=== PATIENT | female | born 1930 | race Caucasian/White ===

== ENCOUNTER 2019-12-16 17:33 | Inpatient (IN) | payer MEDICARE ==
[~2019-12-16] VITALS: Ht 163.8 cm; Wt 50.6 kg
[~2019-12-16 17:33] MED LIST: ATEN100T PO; LOSA100T14 PO
--- NOTE | 2019-12-16 17:56 | NUR ---
BIB [facility] FROM HOME FOR EXERTIONAL DYSPNEA X SEVERAL DAYS, NOTED WHILE DOING YARD WORK. SOB RELIEVED WITH REST. SIGNIFICANT HX OF HTN, MITRAL VALVE PROLAPSE, AND BREAST CANCER. DENIES N/V/D/CP/PRODUCTIVE COUGH/FEVER/EDEMA. BP/SPO2/ECG MONITORING IN PLACE. LBBB W FREQUENT PVCs NOTED ON MONITOR. SPO2 >90% ON RA, RR WNL WITH OCCASIONAL GASP. PT SPEAKING IN FULL SENTENCES WO DIFFICULTY. NO ACCESSORY MUSCLE USE NOTED. +MILD JVD, NO PERIPHERAL EDEMA. DENIES TRAVEL OR HORMONE REPLACEMENT THERAPIES. IV ESTABLISHED. LAB IN TO DRAW. NIECE AT BEDSIDE.
[2019-12-16 18:04] LABS: BASOPHILS % (AUTO) 1 % (0-1); EOSINOPHILS % (AUTO) 0 % (1-7); LYMPHOCYTES % (AUTO) 12 % (22-44); MEAN CORPUSCULAR HEMOGLOBIN 30.8 pg (27.0-34.8); MEAN CORPUSCULAR HGB CONC 32.9 g/dL (32.4-35.8); MEAN PLATELET VOLUME 7.8 fL (7.4-10.4); MONOCYTES % (AUTO) 8 % (2-9); NEUTROPHILS % (AUTO) 80 % (42-75); PLATELET COUNT 677 x10^3/uL (130-400); RED BLOOD COUNT 4.79 x10^6/uL (3.82-5.3); RED CELL DISTRIBUTION WIDTH 15.9 % (9.6-15.2)
[2019-12-16 18:12] LABS: ALBUMIN 3.5 g/dL (3.4-5.0); ANION GAP 9 mmol/L (5-15); CALCIUM 9.1 mg/dL (8.5-10.1); CHLORIDE 103 mmol/L (98-107); CREATININE 1.53 mg/dL (0.55-1.02)
[2019-12-16 18:44] LABS: MD SCAN
--- NOTE | 2019-12-16 18:57 | NUR ---
REPORT GIVEN TO TOMAS LAWLER
[2019-12-16] MEDS ORDERED: ASPIRIN 81 MG TABLET CHEW ONE (18:59)
[2019-12-16] MEDS ORDERED: ASPIRIN 81 MG TABLET CHEW PO ONE (19:00)
[2019-12-16] MEDS ORDERED: FUROSEMIDE 20 MG/2 ML IV ONE (19:00)
--- NOTE | 2019-12-16 19:02 | NUR ---
HOSPITALIST AT BEDSIDE FOR ADMIT
--- NOTE | 2019-12-16 19:26 | NUR ---
CALLED [employer]. CALLED MONA AT 1911 FAXED INFORMATION TO [phone] @ 1914 CONFIRMED FAX AT [phone] DECLINED FROM [facility] @ 192
[2019-12-16] MEDS ORDERED: HEPARIN 5,000 UNITS/ML, 1ML SQ SCH (19:30)
[2019-12-16] MEDS ORDERED: POLYETHYLENE GLYCOL 17 GM PACKET PO PRN (19:30)
[2019-12-16] MEDS ORDERED: BISACODYL 10 MG SUPP PR PRN (19:30)
[2019-12-16] MEDS ORDERED: NITROGLYCERIN 0.4 MG BOTTLE (25 TABS) SL PRN (19:30)
[2019-12-16] MEDS ORDERED: ONDANSETRON ODT 4 MG PO PRN (19:30)
[2019-12-16] MEDS ORDERED: ACETAMINOPHEN 325 MG TABLET PO PRN (19:30)
--- NOTE | 2019-12-16 19:32 | NUR ---
verified heparin rate/ bolus with Scooter from pharmacy
[2019-12-16] MEDS ORDERED: HEPARIN 5,000 UNITS/ML, 1ML ONE (19:34)
[2019-12-16] MEDS ORDERED: HEPARIN 25,000 UNITS/250ML PMX 250 ML ONE (19:34)
[2019-12-16] MEDS ORDERED: FUROSEMIDE 40 MG/4 ML ONE (19:35)
--- NOTE | 2019-12-16 19:41 | NUR ---
HEPARIN DRIP VERIFIED AND STARTED WITH JOSE MANUEL MARIN, BOLUS ALSO GIVEN AND VERIFIED
[2019-12-16] MEDS ORDERED: HEPARIN 25,000 UNITS/250ML PMX 250 ML IV PRN (20:00)
[2019-12-16] MEDS ORDERED: HEPARIN 5,000 UNITS/ML, 1ML IV ONE (20:00)
--- NOTE | 2019-12-16 20:23 | NUR ---
REPORT TO FREDERICK MARIN PT READY FOR TRANSFER TO FLOOR
[2019-12-16 20:45] VITALS: BP 129/69
[2019-12-16] MEDS: ATENOLOL 100 MG TABLET PO SCH (21:00)
[2019-12-16] MEDS: SODIUM CHLORIDE FLUSH 10ML SYR IVF SCH (21:31)
[2019-12-16 21:35] VITALS: BP 129/69
[2019-12-17] VITALS (8 sets, daily range): BP systolic 91–126; BP diastolic 57–73
[2019-12-17] MEDS ORDERED: MAALOX/HYOSCYAMINE/LIDOCAINE 45 ML BTL PO ONE (01:30)
[2019-12-17] MEDS: HEPARIN 5,000 UNITS/ML, 1ML IV PRN (04:09)
[2019-12-17 06:05] LABS: BASOPHILS % (AUTO) 1 % (0-1); EOSINOPHILS % (AUTO) 0 % (1-7); LYMPHOCYTES % (AUTO) 17 % (22-44); MEAN CORPUSCULAR HEMOGLOBIN 30.1 pg (27.0-34.8); MEAN CORPUSCULAR HGB CONC 32.3 g/dL (32.4-35.8); MEAN PLATELET VOLUME 8.1 fL (7.4-10.4); MONOCYTES % (AUTO) 10 % (2-9); NEUTROPHILS % (AUTO) 72 % (42-75); PLATELET COUNT 575 x10^3/uL (130-400); RED BLOOD COUNT 4.47 x10^6/uL (3.82-5.3); RED CELL DISTRIBUTION WIDTH 15.7 % (9.6-15.2)
[2019-12-17 06:11] LABS: ANION GAP 9 mmol/L (5-15); CALCIUM 8.8 mg/dL (8.5-10.1); CHLORIDE 104 mmol/L (98-107); CHOLESTEROL, TOTAL 126 mg/dL (140-239); CREATININE 1.67 mg/dL (0.55-1.02)
[2019-12-17] MEDS: ASPIRIN 81 MG TABLET EC PO SCH (06:14)
[2019-12-17 06:16] LABS: CHOL/HDL RATIO 2.4; HDL CHOL % 42 % (28-40); HDL CHOLESTEROL (DIRECT) 53 mg/dL (40-60); LDL CHOLESTEROL,CALCULATED 64 mg/dL (54-169); LDL/HDL RATIO 1.2 (0.5-3.0); TRIGLYCERIDES 45 mg/dL (50-200); VLDL CHOLESTEROL 9 mg/dL (0-25)
[2019-12-17 07:14] LABS: MICROSCOPIC INDICATED
[2019-12-17 07:43] LABS: MD SCAN
[2019-12-17] MEDS: FUROSEMIDE 20 MG/2 ML IV SCH ×2 (08:14→17:30)
[2019-12-17] MEDS ORDERED: LOSARTAN 100 MG TAB PO SCH (09:00)
[2019-12-17] MEDS: SODIUM CHLORIDE FLUSH 10ML SYR IVF SCH ×2 (09:00→21:00)
[2019-12-17] MEDS: SENNA/DOCUSATE TABLET PO SCH (10:15)
[2019-12-17] MEDS: LOSARTAN 100 MG TAB PO SCH (10:16)
[2019-12-17] MEDS: ATENOLOL 100 MG TABLET PO SCH (10:16)
[2019-12-17] MEDS: CARVEDILOL 6.25 MG TABLET PO SCH (21:00)
[2019-12-17] MEDS: ATORVASTATIN 80 MG TABLET PO SCH (21:00)
[2019-12-18 02:59] VITALS: BP 110/62
[2019-12-18 05:33] LABS: BASOPHILS % (AUTO) 1 % (0-1); EOSINOPHILS % (AUTO) 1 % (1-7); LYMPHOCYTES % (AUTO) 20 % (22-44); MEAN CORPUSCULAR HGB CONC 33.7 g/dL (32.4-35.8); MEAN PLATELET VOLUME 8.3 fL (7.4-10.4); MONOCYTES % (AUTO) 12 % (2-9); NEUTROPHILS % (AUTO) 66 % (42-75); PLATELET COUNT 551 x10^3/uL (130-400); RED BLOOD COUNT 4.35 x10^6/uL (3.82-5.3); RED CELL DISTRIBUTION WIDTH 15.6 % (9.6-15.2)
[2019-12-18 05:38] LABS: ANION GAP 11 mmol/L (5-15); CALCIUM 8.3 mg/dL (8.5-10.1); CHLORIDE 107 mmol/L (98-107); CREATININE 1.41 mg/dL (0.55-1.02)
[2019-12-18 05:47] LABS: MD NO
[2019-12-18] MEDS: ASPIRIN 81 MG TABLET EC PO SCH (06:26)
[2019-12-18] MEDS: HEPARIN 5,000 UNITS/ML, 1ML IV PRN (07:12)
[2019-12-18 07:16] VITALS: BP 106/65
[2019-12-18] MEDS: CARVEDILOL 6.25 MG TABLET PO SCH ×2 (09:21→18:15)
[2019-12-18] MEDS: SODIUM CHLORIDE FLUSH 10ML SYR IVF SCH ×2 (09:22→20:44)
[2019-12-18] MEDS: FUROSEMIDE 20 MG/2 ML IV SCH ×2 (09:22→18:15)
[2019-12-18] MEDS: SENNA/DOCUSATE TABLET PO SCH (09:23)
[2019-12-18] MEDS: LOSARTAN 100 MG TAB PO SCH (12:00)
[2019-12-18 12:57] VITALS: BP 99/54
[2019-12-18 13:01] LABS: MICROSCOPIC AUTO
[2019-12-18 20:43] VITALS: BP 94/53
[2019-12-18] MEDS: ATORVASTATIN 80 MG TABLET PO SCH (20:44)
[2019-12-19 01:32] VITALS: BP 93/59
[2019-12-19 05:36] LABS: BASOPHILS % (AUTO) 1 % (0-1); EOSINOPHILS % (AUTO) 3 % (1-7); LYMPHOCYTES % (AUTO) 22 % (22-44); MEAN CORPUSCULAR HEMOGLOBIN 30.5 pg (27.0-34.8); MEAN CORPUSCULAR HGB CONC 32.9 g/dL (32.4-35.8); MEAN PLATELET VOLUME 8.5 fL (7.4-10.4); MONOCYTES % (AUTO) 12 % (2-9); NEUTROPHILS % (AUTO) 63 % (42-75); PLATELET COUNT 457 x10^3/uL (130-400); RED BLOOD COUNT 4.13 x10^6/uL (3.82-5.3); RED CELL DISTRIBUTION WIDTH 16.5 % (9.6-15.2)
[2019-12-19 05:38] LABS: MD NO
[2019-12-19 05:41] LABS: ALANINE AMINOTRANSFERASE 83 U/L (12-78); ALBUMIN 2.4 g/dL (3.4-5.0); ANION GAP 6 mmol/L (5-15); CALCIUM 8.1 mg/dL (8.5-10.1); CHLORIDE 104 mmol/L (98-107); CREATININE 1.25 mg/dL (0.55-1.02)
[2019-12-19 05:43] LABS: ALKALINE PHOSPHATASE 86 U/L (45-117); BILIRUBIN,TOTAL 0.9 mg/dL (0.2-1.0)
[2019-12-19 06:17] VITALS: BP 126/71
[2019-12-19] MEDS: CARVEDILOL 6.25 MG TABLET PO SCH ×2 (06:19→18:00)
[2019-12-19] MEDS: ASPIRIN 81 MG TABLET EC PO SCH (06:19)
[2019-12-19 09:00] VITALS: BP 111/56
[2019-12-19] MEDS: SENNA/DOCUSATE TABLET PO SCH (09:00)
[2019-12-19] MEDS: SPIRONOLACTONE 25 MG TABLET PO SCH (09:06)
[2019-12-19] MEDS: CLOPIDOGREL 75 MG TABLET PO SCH (09:08)
[2019-12-19] MEDS: FUROSEMIDE 20 MG TABLET PO SCH (09:08)
[2019-12-19] MEDS: LOSARTAN 100 MG TAB PO SCH (09:09)
[2019-12-19] MEDS: SODIUM CHLORIDE FLUSH 10ML SYR IVF SCH ×2 (09:13→20:25)
[2019-12-19] MEDS: CEFTRIAXONE PMX 1GM/50ML 50 ML IV SCH (10:28)
[2019-12-19] MEDS: ATORVASTATIN 80 MG TABLET PO SCH (20:25)
[2019-12-19 20:26] VITALS: BP 128/75
[2019-12-20 00:12] VITALS: BP 113/65
[2019-12-20 05:27] LABS: BASOPHILS % (AUTO) 1 % (0-1); EOSINOPHILS % (AUTO) 3 % (1-7); LYMPHOCYTES % (AUTO) 17 % (22-44); MEAN CORPUSCULAR HEMOGLOBIN 30.6 pg (27.0-34.8); MEAN CORPUSCULAR HGB CONC 33.1 g/dL (32.4-35.8); MEAN PLATELET VOLUME 8.5 fL (7.4-10.4); MONOCYTES % (AUTO) 12 % (2-9); NEUTROPHILS % (AUTO) 68 % (42-75); PLATELET COUNT 469 x10^3/uL (130-400); RED CELL DISTRIBUTION WIDTH 16.7 % (9.6-15.2)
[2019-12-20 05:36] LABS: ANION GAP 8 mmol/L (5-15); CALCIUM 8.5 mg/dL (8.5-10.1); CHLORIDE 106 mmol/L (98-107); CREATININE 1.07 mg/dL (0.55-1.02)
[2019-12-20 05:45] LABS: MD NO
[2019-12-20 08:01] VITALS: BP 127/65
[2019-12-20] MEDS: LOSARTAN 100 MG TAB PO SCH (08:39)
[2019-12-20] MEDS: CLOPIDOGREL 75 MG TABLET PO SCH (08:39)
[2019-12-20] MEDS: SENNA/DOCUSATE TABLET PO SCH (08:39)
[2019-12-20] MEDS: SODIUM CHLORIDE FLUSH 10ML SYR IVF SCH ×2 (08:40→20:07)
[2019-12-20] MEDS: FUROSEMIDE 20 MG TABLET PO SCH (08:40)
[2019-12-20] MEDS: SPIRONOLACTONE 25 MG TABLET PO SCH (08:40)
[2019-12-20] MEDS: CARVEDILOL 6.25 MG TABLET PO SCH ×2 (08:40→18:07)
[2019-12-20] MEDS: CEFTRIAXONE PMX 1GM/50ML 50 ML IV SCH (09:00)
[2019-12-20] MEDS: ASPIRIN 81 MG TABLET EC PO SCH (09:04)
[2019-12-20 14:57] VITALS: BP 102/57
[2019-12-20 18:07] VITALS: BP 121/58
[2019-12-20 18:59] VITALS: BP 118/64
[2019-12-20] MEDS: ATORVASTATIN 80 MG TABLET PO SCH (20:07)
[2019-12-21 01:17] VITALS: BP 116/60
[2019-12-21 05:54] VITALS: BP 152/77
[2019-12-21] MEDS: ASPIRIN 81 MG TABLET EC PO SCH (05:59)
[2019-12-21] MEDS: CARVEDILOL 6.25 MG TABLET PO SCH (05:59)
[2019-12-21 08:13] VITALS: BP 118/62
[2019-12-21] MEDS: SPIRONOLACTONE 25 MG TABLET PO SCH (09:11)
[2019-12-21] MEDS: FUROSEMIDE 20 MG TABLET PO SCH (09:11)
[2019-12-21] MEDS: CLOPIDOGREL 75 MG TABLET PO SCH (09:11)
[2019-12-21] MEDS: SENNA/DOCUSATE TABLET PO SCH (09:11)
[2019-12-21] MEDS: LOSARTAN 100 MG TAB PO SCH (09:11)
[2019-12-21] MEDS: SODIUM CHLORIDE FLUSH 10ML SYR IVF SCH (09:11)
[2019-12-21] MEDS ORDERED: CARV6.2512 PO (13:56)
[2019-12-21] MEDS ORDERED: ATOR-2 PO (13:56)
[2019-12-21] MEDS ORDERED: CLOP75TA PO (13:56)
[2019-12-21] MEDS ORDERED: SPIR25TA PO (13:56)
[2019-12-21] MEDS ORDERED: FURO20TA3 PO (13:56)
[2019-12-21] MEDS ORDERED: ASPI81TA45 PO (13:56)
[2019-12-21 14:57] VITALS: BP 119/64
== END 2019-12-21 16:59 | DRG 280 ==
LOC: ED 18:44 → EDIP 19:47 → 5SO 20:26
PROVIDERS: ADMIT Family Medicine; ATTEND Family Medicine
DX: I21.4 Non-ST elevation (NSTEMI) myocardial infarction (principal); I50.43 Acute on chronic combined systolic (congestive) and diastolic (congestive) heart failure; I13.0 Hypertensive heart and chronic kidney disease with heart failure and stage 1 through stage 4 chronic kidney disease, or unspecified chronic kidney disease; N17.9 Acute kidney failure, unspecified; J98.11 Atelectasis; N18.9 Chronic kidney disease, unspecified; I70.0 Atherosclerosis of aorta; I44.7 Left bundle-branch block, unspecified; I25.5 Ischemic cardiomyopathy; I08.3 Combined rheumatic disorders of mitral, aortic and tricuspid valves; F03.90 Unspecified dementia, unspecified severity, without behavioral disturbance, psychotic disturbance, mood disturbance, and anxiety; D72.829 Elevated white blood cell count, unspecified; Z90.710 Acquired absence of both cervix and uterus; Z87.891 Personal history of nicotine dependence; Z85.3 Personal history of malignant neoplasm of breast; Z80.3 Family history of malignant neoplasm of breast; Z79.02 Long term (current) use of antithrombotics/antiplatelets
CPT/HCPCS: 36415; 71045; 80048; 80053; 80061; 81001; 82040; 83880; 84145; 84484; 85025; 85520; 87086; 93005; 93306; 96374; 99291; G0378; J0696; J1644; 92523-GN; J1940